=== PATIENT | female | born 1965 | race Caucasian/White ===

== ENCOUNTER 2023-12-08 10:14 | Day surgery (SDC) | payer BC ==
[~2023-12-08] VITALS: Ht 165.1 cm; Wt 95.5 kg
[~2023-12-08 10:14] MED LIST: LR 1,000 ML IV SCH; Meclizine 25 MG TAB PO SCH; Metoclopramide 10 MG TAB PO SCH
[2023-12-08] MEDS ORDERED: fentaNYL 50 MCG/ML 2 ML VIAL IV PRN ×2 (11:15)
[2023-12-08] MEDS ORDERED: hydrALAZINE 20 MG/ML 1 ML VIAL IV PRN (11:15)
[2023-12-08] MEDS ORDERED: droPERidol 2.5 MG/ML 2 ML VIAL IV PRN (11:15)
[2023-12-08] MEDS ORDERED: Ondansetron 4 MG/2 ML VIAL IV PRN ×2 (11:15→13:45)
[2023-12-08] MEDS ORDERED: HYDROmorphone 2 MG/1 ML VIAL IV PRN (11:15)
[2023-12-08] MEDS ORDERED: Rocuronium 50 MG/5 ML Multi-Dose VIAL ONE (11:35)
[2023-12-08] MEDS ORDERED: fentaNYL 50 MCG/ML 2 ML VIAL ONE (11:35)
[2023-12-08] MEDS ORDERED: NS 10 ML IV ONE (11:36)
[2023-12-08] MEDS ORDERED: dexAMETHasone 10 MG/ML VIAL ONE (11:36)
[2023-12-08] MEDS ORDERED: Ondansetron 4 MG/2 ML VIAL ONE (11:36)
[2023-12-08] MEDS ORDERED: Topical Skin Adhesive 1 EACH (1 ML) TOP ONE (12:56)
[2023-12-08] MEDS ORDERED: Lidocaine PF 2% (20 MG/ML) 5 ML VIAL SQ ONE (12:56)
[2023-12-08 13:27] VITALS: BP 114/53; PULSE 76; TEMP 97.5
[2023-12-08 13:42] VITALS: BP 114/53; PULSE 76
[2023-12-08] MEDS ORDERED: Ibuprofen 600 MG TAB PO PRN (13:45)
[2023-12-08] MEDS ORDERED: Acetaminophen 325 MG TAB PO PRN (13:45)
[2023-12-08] MEDS ORDERED: oxyCODONE/Acetaminophen 5-325 MG TAB PO PRN (13:45)
[2023-12-08] MEDS ORDERED: NORVASC 10MG10 MG PO (13:50)
[2023-12-08] MEDS ORDERED: KLONOPIN 0.5MG0.5 MG PO (13:51)
[2023-12-08] MEDS ORDERED: ULTRAM 50MG TAB50 MG PO (13:52)
[2023-12-08] MEDS ORDERED: PROAIR HFA0.09 MG/AC IH (13:53)
[2023-12-08] MEDS ORDERED: PRINZIDE 12.5 M1 TA1 PO (13:53)
[2023-12-08] MEDS ORDERED: CYANOCOBAL1000 MCG/1 SQ (13:53)
[2023-12-08] MEDS ORDERED: KAPVAY0.1 MG PO (13:54)
[2023-12-08 13:55] VITALS: BP 128/62; PULSE 72
[2023-12-08] MEDS ORDERED: MOBIC15 MG PO (13:55)
[2023-12-08] MEDS ORDERED: MELATONIN5 M1 SL (13:55)
[2023-12-08] MEDS ORDERED: CLARITIN 1010 MG/TAB PO (13:57)
[2023-12-08] MEDS ORDERED: ADVIL DUAL ACT1 EACH PO (13:57)
[2023-12-08 14:04] VITALS: BP 132/66; PULSE 76; TEMP 97.6
--- NOTE | 2023-12-08 14:20 | NUR ---
1327 RETURNS TO ROOM 5 PER CART. WITH HOB ELEVATED 30 DEGREES. DROWSY, AROUSES SPONTANEOUSLY. RESP UNLABORED. INCISION RIGH NECK AND RIGHT UPPER CHEST INTACT. NO REDNESS OR DRAINAGE OBSREVED. DENIES DISCOMFORT. CALL LIGHT AT SIDE, IN ROOM 1342 AWAKE, ALERT. HOB ELEVATED 80 DEGREES. TOLERATES PO JUICE AND PUDDING WITHOUT NAUSEA. 1357 DISCHARGE INSTRUCTIONS REVIEWED. PATIENT VERBALIZES UNDERSTANDING. COPY PROVIDED IN DISCHARGE FOLDER [id number] SITS ON EDGE OF CART. DRESSES SELF, THEN AMBULATES TO BATHROOM WITH STANDBY ASSIST. VOIDS
== END 2023-12-08 14:20 | disposition home or self-care (01) ==
LOC: SDCO 10:14
DX: C20 Malignant neoplasm of rectum (principal)
CPT/HCPCS: C1788; J0690; J1100; J1644; J2405; J2704; J3010; J7120